=== PATIENT | female | born 1985 ===

== ENCOUNTER → 2021-06-13 | Outpatient (CLI) | payer OTHER | LOC: LAB SHORT 07:15 | DX: R21 Rash and other nonspecific skin eruption (principal) | CPT/HCPCS: 88312 ==

== ENCOUNTER → 2021-10-26 | Outpatient (CLI) | payer OTHER | LOC: LAB 10:30 → LAB SHORT 10:30 | DX: L73.2 Hidradenitis suppurativa (principal) | CPT/HCPCS: 87070; 87077; 87186; 87205 ==